=== PATIENT | female | born 1945 | race Caucasian/White ===

== ENCOUNTER → 2016-08-14 | Outpatient (CLI) | payer MEDICARE, OTHER | END | disposition home or self-care (01) | LOC: GMAJ 14:09 | PROVIDERS: ATTEND Family Medicine | DX: E03.9 Hypothyroidism, unspecified (principal) ==

== ENCOUNTER 2017-01-28 15:00 | Inpatient (IN) | payer MEDICARE, OTHER ==
--- NOTE | 2017-01-28 15:02 | HP ---
HISTORY OF PRESENT ILLNESS: This 71 year-old white female is direct admitted to the hospital from Dr. Gutierrez' clinic because of worsening shortness of breath , cough, fever and associated hypoxia with pulse oximetry decreasing from 90% at rest down to 81% walking to the X-ray Department for a film. She was seen in the clinic yesterday by a nurse practitioner and was given a Rocephin shot, and started on Levaquin tablets with her first Levaquin dose being this morning. Her condition has worsened to the point that she came back to the clinic for followup and is referred to the hospital for admission because of worsening condition as well as findings on chest x-ray of a left sided pneumonia. She had a flu swab yesterday which was negative. She has been getting sicker for the last 5 days. Her sputum is generally quite clean. No sore throat, slight runny nose present though. No nausea and vomiting. Pressure in the left ear was noted and her left ear was looked at in the clinic yesterday. The patient is admitted to the hospital for initiation of parenteral antibiotic therapy in an effort to try to slow down the progression and to help prevent her general condition from worsening. PAST MEDICAL HISTORY: 1. Strep infection along with her about a month ago. 2. She has had some coronary artery disease but no significant pneumonia or asthma in the past. PAST SURGICAL HISTORY: 1. Hysterectomy in 1987. 2. Coronary catheterization in 2005 with resultant small caliber left anterior descending being noted. HOME MEDICATIONS: 1. Celexa 40 mg daily. 2. Nasacort AQ 2 sprays in each nostril daily. 3. Levaquin 500 mg starting this morning. 4. Biotin 1 daily. 5. Fish oil daily. ALLERGIES: NONE KNOWN SPECIFICALLY, EXCEPT IT IS NOTED THAT SHE HAS HAD SOME PROBLEMS WITH KJ INHIBITORS RESULTING IN A COUGH, SYNTHROID WITH A SORE THROAT AND ZOCOR GIVING HER A MYALGIA. FAMILY HISTORY: Positive for lung cancer and a transient ischemic attack. SOCIAL HISTORY: She has worked for over 26 years in the [employer] in [place]. She has never smoked or drunk alcoholic beverages. REVIEW OF SYSTEMS: Weight is stable. Low-grade fever, temperature of approximately 100 for the last 5 days with her temperature normally being in the 97s. HEENT: Slight runny nose. No sore throat. Mild ear achiness in the left leg ear. NECK: Supple. LUNGS: Shortness of breath with cough noted with her current illness with associated low oxygen. CARDIOVASCULAR: No significant chest pains. No palpitations. GASTROINTESTINAL: No nausea, vomiting, diarrhea or blood in the stools. GENITOURINARY: No dysuria. Urine culture pending. EXTREMITIES: No significant abnormalities. NEUROLOGIC: She is somewhat weak with her current illness. PHYSICAL EXAMINATION: VITAL SIGNS: See vitals. GENERAL: The patient is awake, alert and oriented, and communicative. CHEST: Lungs have some rales especially in the bases bilaterally but more to the lateral lung field on the left compared to the right and with some clearing of basilar rales with repetitive deep breathing. Encouraged to continue to breathe deeply. CARDIOVASCULAR: Heart tones fairly regular. ABDOMEN: Soft. No organomegaly, marti or tenderness. EXTREMITIES: Fairly well formed. No significant edema and good range of motion. NEUROLOGIC: No focal weakness evident. LABORATORY STUDIES: Flu A and B is negative as of yesterday. Other lab studies was a CBC performed today which shows white count 5,600 with 67% neutrophils, hemoglobin 13.5. ASSESSMENT: 1. History of acute left sided pneumonia with chest x-ray pending in the morning to followup x-rays performed in the clinic and not available at this time for review. 2. Febrile illness for the last 5 days. 3. Moderate hypoxia with pulse oximetry down to 81% ambulating slowly to the X-ray Department in the clinic returning towards normal with low flow oxygen. 4. History of coronary artery disease with history of coronary angiography and a history of small vessel involvement of the left anterior descending artery. PLAN: The patient is admitted to the hospital for initiation of parenteral antibiotic therapy having failed outpatient treatment. The level of hypoxia will require close observation with pulse oximetry but also oxygen supplementation to maintain adequate oxygenation. Pulmonary hygiene and bronchodilators will be used to assist with the respiratory status. Will continue with DVT prophylaxis. Continue with home medications and observe blood pressure, and response to treatment. Close followup in the clinic with Dr. Gutierrez after improvement to the point where she will be able to safely return home. #[id number] [facility]
[2017-01-28] MEDS ORDERED: IBUPROFEN 400 MG TAB PO PRN (15:47)
[2017-01-28] MEDS ORDERED: HYDROcodone 5MG/APAP 325MG 1 EA TAB PO PRN (15:47)
[2017-01-28] MEDS ORDERED: MAGNESIUM HYDROXIDE 30 ML UD PO PRN (15:47)
[2017-01-28] MEDS ORDERED: SODIUM CHLORIDE 0.9% (FLUSH) 10 ML SYG IV PRN (15:47)
[2017-01-28] MEDS ORDERED: IV SET AND CAP CHANGE INJ INJ SCH (16:00)
--- NOTE | 2017-01-28 16:12 | PCM.CORE ---
Physician DVT/VTE - Nurse DVT Assessment & Total Each Risk Factor Represents 2 Points: Age 60-74 Each Risk Factor is 1 Point: Obesity (BMI >25) DVT Assessment Score: 3 - 3-4 High Risk Treatments: Sequential Compression Device Pharmacological: Enoxaparin 40 mg SQ Daily
[2017-01-28] MEDS: LEVALBUTEROL NEBS 1.25 MG/3 ML VIAL INH SCH ×2 (16:33→23:30)
[2017-01-28] MEDS: ENOXAPARIN SODIUM 40 MG/0.4 ML SYG SUBCU SCH (17:23)
[2017-01-28] MEDS: levoFLOXacin 750MG IV 750 MG in PREMIX BAG 1 BAG IVPB SCH (17:23)
[2017-01-28] MEDS: SODIUM CHLORIDE 0.9% 1000ML 1,000 ML IVS PRN (17:23)
[2017-01-28] MEDS ORDERED: TEMAZEPAM 15 MG CAP PO PRN (21:35)
[2017-01-28] MEDS ORDERED: BENZONATATE PERLES 100 MG CAP ONE (22:07)
[2017-01-28] MEDS ORDERED: TEMAZEPAM 15 MG CAP ONE (22:07)
[2017-01-28] MEDS ORDERED: BENZONATATE PERLES 100 MG CAP PO PRN (22:48)
[2017-01-29] MEDS ORDERED: OMEPRAZOLE CAP 20 MG CAP ONE (05:00)
[2017-01-29] MEDS: OMEPRAZOLE CAP 20 MG CAP PO SCH (06:00)
--- NOTE | 2017-01-29 06:57 | RAD ---
Clinical History : Pneumonia , MAIN Exam : PA and lateral views of the chest 01/29/2017 7:00 AM CDT Comparisons : none Findings : There are patchy confluent areas of groundglass opacity throughout the left lower lobe and lingula. The right lung remains largely clear. The heart is normal in size. The mediastinal contours are normal in appearance. The thoracic spine is age appropriate. The shoulders are unremarkable. Limited evaluation of the upper abdomen demonstrates no gross abnormalities. Impression: Lingular and left lower lobe airspace disease, likely representing infectious pneumonia. Electronically signed by: Elaine Monet MD 01/29/2017 6:56 AM CDT
[2017-01-29] MEDS ORDERED: BENZONATATE PERLES 100 MG CAP PO PRN (07:30)
[2017-01-29] MEDS: SODIUM CHLORIDE 0.9% 1000ML 1,000 ML IVS PRN ×2 (08:27→22:02)
[2017-01-29] MEDS: CITALOPRAM HBR 20 MG TAB PO SCH (08:28)
[2017-01-29] MEDS: ASPIRIN EC 81 MG TAB PO SCH (08:28)
[2017-01-29] MEDS: ENOXAPARIN SODIUM 40 MG/0.4 ML SYG SUBCU SCH (08:28)
[2017-01-29] MEDS: LEVALBUTEROL NEBS 1.25 MG/3 ML VIAL INH SCH ×2 (08:38→16:26)
[2017-01-29] MEDS ORDERED: BENZONATATE PERLES 100 MG CAP PO SCH (09:00)
[2017-01-29] MEDS: levoFLOXacin 750MG IV 750 MG in PREMIX BAG 1 BAG IVPB SCH (16:41)
[2017-01-29] MEDS ORDERED: methylPREDNISolone SODIUM SUC 125 MG/2 ML VIAL IV ONE (20:20)
[2017-01-29] MEDS: LEVALBUTEROL NEBS 1.25 MG/3 ML VIAL NEB PRN (20:37)
[2017-01-29] MEDS: guaiFENesin ER TAB 600 MG TAB PO SCH (20:51)
--- NOTE | 2017-01-29 21:05 | PN ---
DATE: 01/29/17 SUPERVISING PHYSICIAN: Clarence Tristan M.D. SUBJECTIVE: The patient is sitting up in her bed. She has complaints of nasal congestion as well as a hacking cough. She also says she has trouble with deep inspiration. Otherwise no complaints of chest pain, nausea, vomiting, diarrhea or constipation. OBJECTIVE: VITAL SIGNS: She is afebrile, heart rate 80, blood pressure 142/79, respiratory rate 18, O2 sat is 94% on 1 liter nasal cannula. RESPIRATORY: Expiratory wheezing throughout with diffuse rhonchi. CARDIAC: Regular rate and rhythm. ABDOMEN: Soft, nondistended, non-tender. Bowel sounds are positive. EXTREMITIES: No cyanosis, clubbing or edema. NEUROLOGIC: She is awake, alert and oriented times three. LABORATORY: WBCs are 3.1 with hemoglobin 12.4, hematocrit 37.2, neutrophils 37.6. Sodium 138, potassium 3.6, chloride 105, carbon dioxide 29, BUN 10, creatinine 0.77, glucose 94. Serum osmolality 274.5 with calcium 8.6. Sputum culture is pending. Preliminary blood cultures show no growth after 24 hours. RADIOLOGY: Chest x-ray per radiology interpretation shows lingular and left lower lobe airspace disease likely representing infectious pneumonia. All other labs and films have been reviewed via the EMR. ASSESSMENT: 1. Left lower lobe pneumonia presently on Levaquin, awaiting sputum cultures. 2. Febrile illness for the past 5 days. She has been afebrile the last 24 hours. 3. Moderate hypoxia with pulse oximetry down to 81% initially and now has stabilized to O2 sats in the low 90s. 4. History of coronary artery disease. PLAN: We will continue present supportive care, including her Levaquin antibiotics. We will await cultures. I have also added steroids and we will give her a tapered dose. I have also ordered some percussion and some EzPAP. Will continue with aggressive pulmonary hygiene. I have ordered Mucinex and we will repeat her labs and chest x-ray in the morning. She will need an ambulation study tomorrow. Otherwise we will continue to monitor her closely and followup as needed. Dr. Tristan is the collaborating physician available for consultation. #[id number] [facility]
[2017-01-30] MEDS: LEVALBUTEROL NEBS 1.25 MG/3 ML VIAL NEB PRN (00:07)
[2017-01-30] MEDS ORDERED: methylPREDNISolone SODIUM SUC 125 MG/2 ML VIAL IV ONE ×2 (06:00→14:39)
[2017-01-30] MEDS: OMEPRAZOLE CAP 20 MG CAP PO SCH (06:21)
--- NOTE | 2017-01-30 07:05 | RAD ---
EXAM DESCRIPTION: Chest,2 Views CLINICAL HISTORY: pna COMPARISON: January 29, 2017 FINDINGS: The cardiomediastinal silhouette is unremarkable. Again seen is interstitial prominence in the mid and lower left lung, unchanged from yesterday's exam. No new airspace consolidation or pleural effusion. The bronchovascular markings are within normal limits, and the lungs are not hyperinflated. There is no pneumothorax or acute fracture. IMPRESSION: Interstitial opacities in the mid and lower left lung, unchanged from yesterday. Findings are consistent with provided history of pneumonia. No new abnormality or other significant change. Electronically signed by: Daniel Finch MD 01/30/2017 7:04 AM CDT
[2017-01-30] MEDS: ASPIRIN EC 81 MG TAB PO SCH (09:00)
[2017-01-30] MEDS: guaiFENesin ER TAB 600 MG TAB PO SCH ×2 (09:00→20:29)
[2017-01-30] MEDS: CITALOPRAM HBR 20 MG TAB PO SCH (09:00)
[2017-01-30] MEDS: LEVALBUTEROL NEBS 1.25 MG/3 ML VIAL INH SCH ×4 (09:29→19:25)
[2017-01-30] MEDS ORDERED: BENZONATATE PERLES 100 MG CAP PO PRN (10:00)
[2017-01-30] MEDS ORDERED: methylPREDNISolone SODIUM SUC 125 MG/2 ML VIAL IM ONE (14:00)
[2017-01-30] MEDS: ENOXAPARIN SODIUM 40 MG/0.4 ML SYG SUBCU SCH (14:28)
[2017-01-30] MEDS: levoFLOXacin 750MG IV 750 MG in PREMIX BAG 1 BAG IVPB SCH (15:18)
--- NOTE | 2017-01-30 17:13 | PN ---
DATE: 01/30/17 SUPERVISING PHYSICIAN: SUBJECTIVE: The patient is sitting up in her chair in her hospital room. She feels much better than yesterday. She still continues to have a productive cough, but the sputum is clear. She denies any shortness of breath, except with exertion. Denies any nausea, vomiting, diarrhea, constipation or chest pain. OBJECTIVE: VITAL SIGNS: She is afebrile, heart rate 80, blood pressure 129/70, respiratory rate 20, O2 sat is 94%. RESPIRATORY: Some mild expiratory wheezing in the bases. Essentially clear in the right upper lobe. A few scattered rhonchi in the left upper lobe. CARDIAC: Regular rate and rhythm. ABDOMEN: Soft, nondistended, non-tender. Bowel sounds are positive. EXTREMITIES: No cyanosis, clubbing or edema. NEUROLOGIC: She is awake, alert and oriented times three. LABORATORY: WBCs are unchanged at 3.1 with neutrophils of 86.2%, hemoglobin 12.5, hematocrit 37.4. Electrolytes are basically within normal limits. Blood glucose has gone as high as 170 but she is on steroid therapy. Preliminary sputum culture shows normal casper at 24 hours. Preliminary blood cultures show no growth after 24 hours. RADIOLOGY: Chest x-ray per radiology interpretation shows interstitial opacities in the mid and lower left lung unchanged from yesterday. Findings are consistent with provided history of pneumonia. No new abnormality or other significant change. All other labs and films have been reviewed via the EMR. ASSESSMENT: 1. Left lower lobe pneumonia presently on Levaquin awaiting sputum cultures. 2. Febrile illness prior to admission. She has been afebrile in the last 48 hours. 3. Moderate hypoxia with a pulse oximetry down to 81% initially and now has stabilized with her O2 sats in the low to mid 90s. 4. History of coronary artery disease. PLAN: We will continue present supportive care. I have tapered down her steroids. She will continue on Levaquin. Clinically she is much improved since yesterday. I will also order an ambulation study tomorrow. I will hold on her labs tomorrow as they are fairly stable, but will repeat her chest x-ray tomorrow. She will need frequent ambulation and continued good pulmonary hygiene. Hopefully we can discharge her tomorrow or Friday as long as she continues to improve. We will continue to monitor closely and followup as needed. Dr. Tristan is the collaborating physician available for consultation. #[id number] [facility]
[2017-01-30] MEDS: methylPREDNISolone SODIUM SUC 40 MG/ML VIAL IV SCH (19:48)
[2017-01-31] MEDS: methylPREDNISolone SODIUM SUC 40 MG/ML VIAL IV SCH ×3 (00:13→12:20)
[2017-01-31] MEDS: OMEPRAZOLE CAP 20 MG CAP PO SCH (06:12)
--- NOTE | 2017-01-31 06:38 | RAD ---
Procedure: XR CHEST 2 VIEWS Exam Date: 01/31/2017 Ordering Provider: HELENA KUMAR Clinical Indication: pna Comparison: 01/30/2017 Findings: Cardiomediastinal silhouette is stable. Focal lung consolidation: None Pleural effusion: None Pneumothorax: None Acute bony or soft tissue abnormality: None Impression: 1. No acute abnormalities in the chest. Electronically signed by: Deven Victor MD 01/31/2017 6:36 AM CDT
[2017-01-31] MEDS: LEVALBUTEROL NEBS 1.25 MG/3 ML VIAL INH SCH ×2 (08:08→13:56)
[2017-01-31] MEDS: CITALOPRAM HBR 20 MG TAB PO SCH (09:21)
[2017-01-31] MEDS: ASPIRIN EC 81 MG TAB PO SCH (09:21)
[2017-01-31] MEDS: guaiFENesin ER TAB 600 MG TAB PO SCH (09:22)
[2017-01-31] MEDS: ENOXAPARIN SODIUM 40 MG/0.4 ML SYG SUBCU SCH (09:23)
[2017-01-31] MEDS ORDERED: FLUCONAZOLE 150 MG TAB PO ONE (12:09)
[2017-01-31 12:11] VITALS: BP 153/66; TEMP 99; O2SAT 98
[2017-01-31] MEDS ORDERED: levoFLOXacin 500 MG TAB PO ONE (12:13)
--- NOTE | 2017-02-07 09:03 | DS ---
SUPERVISING PHYSICIAN: Clarence Tristan MD DISCHARGE DIAGNOSIS: 1. Left lower lobe pneumonia, showing improvement on Levaquin with sputum culture showing normal casper. 2. Febrile illness prior to admission, secondary to #1. 3. Moderate hypoxia with a pulse oximetry of 81% on room air, stabilized oxygen saturations prior to discharge. 4. History of coronary artery disease. HISTORY OF PRESENT ILLNESS: Ms. Chapin is a 71-year-old female patient who was directly admitted to the hospital from Dr. Gutierrez' clinic because of worsening shortness of breath, cough, fever and associated hypoxia with pulse oximetry decreasing from 90% at rest down to 81% walking. She was seen in the clinic the day before admission by a nurse practitioner and was given a Rocephin shot and started on Levaquin tablets with her first Levaquin dose the morning of admission. Her condition has worsened to the point that she came back to the clinic for followup and was referred to the hospital for admission because of worsening condition as well as findings on chest x-ray concerning for left sided pneumonia. She had a flu swab which was negative. She had been getting sicker for the previous 5 days. Her sputum was fairly clean. No sore throat, slight runny nose present though. No nausea and vomiting. The patient is admitted to the hospital for initiation of parenteral antibiotic therapy in an effort to try to slow down the progression and to help prevent her general condition from worsening. LABORATORY: White count on admission and discharge were unchanged at 3,100, hemoglobin 12.5, hematocrit 37.4 at discharge. Platelet count at discharge was 160. Differential did show a mild decrease in her absolute neutrophil count, however this had normalized prior to discharge. Chemistries showed initial , potassium 3.9. At discharge, electrolytes had normalized. BUN was 11, creatinine 0.7, glucose 170. Liver functions all within normal limits. Magnesium was low at 1.8. Urinalysis was within normal limits. MICROBIOLOGY: She had two sets of blood cultures that were negative after five days. Sputum culture showed normal casper at 48 hours. RADIOLOGY: Chest x-ray the morning after admission showed a lingular and left lower lobe airspace disease likely representing infectious pneumonia. Followup x-rays were completed on the morning of discharge on 01/31/17 and final x-ray per radiologic interpretation of a two-view chest showed no acute abnormalities within the chest. HOSPITAL COURSE: Ms. Chapin was admitted as noted above for concerns for developing community acquired pneumonia. She was initiated on aggressive pulmonary hygiene with parenteral antibiotic to include Levaquin. Clinically, she did show good improvement and on the morning of discharge, she was felt clinically stable enough to be discharged to continue with outpatient treatment plan. Vital signs on the morning of discharge showed oxygen saturation 98% on room air, respirations 16, blood pressure 153/60, temperature 99. She did remain afebrile through admission. She did have an ambulation study on that showed she was satting 95% through initial exertion up to 422 feet. She de-satted after ambulation to 91%. The patient did show significant wheezing initially on admission and was started on aggressive corticosteroid treatment with good results and good clinical resolution of her respiratory wheezing along with bronchial hygiene therapy. She also had some questionable vaginal itching from aggressive antibiotic therapy. Therefore, she was given Diflucan for treatment of possible yeast infection. Again, she was clinically stable on the morning of discharge. PLAN: Ms. Chapin was discharged on 01/31/17 with instructions to closely followup in the clinic with Dr. Gutierrez as scheduled on 02/06/17. She was to start her home medications as directed and take prescriptions as instructed. She was to return to the hospital should she have any concerning symptoms. DISCHARGE PRESCRIPTIONS: 1. Albuterol inhaler 1 puff every 4 hours as needed, #1 inhaler. 2. Diflucan 150 mg tablet daily as needed. 3. Levaquin 500 mg daily for 6 days. 4. Prednisone tapering pack, 40 mg for 3 days, 30 mg for 3 days, 20 mg for 3 days, and then one tablet 10 mg for 3 days. DIET AT DISCHARGE: Regular diet as tolerated. ACTIVITIES: Increase as tolerated. CONDITION AT DISCHARGE: Stable and improved. #[id number] [facility]
== END 2017-01-31 13:30 | disposition home or self-care (01) | DRG 195 ==
LOC: MS 15:00
PROVIDERS: ADMIT Emergency Medicine; ATTEND Nurse Practitioner Family
DX: J18.9 Pneumonia, unspecified organism (principal); R09.02 Hypoxemia; I25.10 Atherosclerotic heart disease of native coronary artery without angina pectoris; B37.3 Candidiasis of vulva and vagina

== ENCOUNTER 2017-05-06 04:20 | Emergency (ER) | payer MEDICARE, OTHER ==
[2017-05-06 04:59] VITALS: BP 120/65
[2017-05-06] MEDS ORDERED: ACETAMINOPHEN 500 MG TAB PO ONE (05:29)
--- NOTE | 2017-05-06 05:32 | ED.PDOC ---
History of Present Illness - General Chief Complaint: Fever Stated Complaint: fever, cough, congestion Time Seen by Provider: 05/06/17 05:28 Source: patient Exam Limitations: no limitations Additional Information: C/O ONSET OF FEVER, CLEAR TO BLOOD TINGED RHINORRHEA, GENERAL MALAISE - History of Present Illness Timing/Duration: other - 3 DAYS Fever Therapy GAME ATTENDANT: Ibuprofen Associated Symptoms: headache Review of Systems - Review of Systems Constitutional: States: fever. Denies: chills EENTM: States: nose congestion, throat pain. Denies: ear pain Respiratory: States: cough - [employer] Cardiology: States: no symptoms reported Gastrointestinal/Abdominal: Denies: diarrhea, nausea, vomiting Genitourinary: States: no symptoms reported Musculoskeletal: States: no symptoms reported Skin: States: no symptoms reported Neurological: States: no symptoms reported Endocrine: States: no symptoms reported Past Medical History (General) - Patient Medical History Hx Seizures: No Hx Stroke: No Hx Dementia: No Hx Asthma: No Hx of COPD: No Hx Cardiac Disorders: No Hx Congestive Heart Failure: No Hx Pacemaker: No Hx Hypertension: No Hx Thyroid Disease: No Hx Diabetes: No Hx Gastroesophageal Reflux: No Hx Renal Disease: No Hx Cancer: No Hx of HIV: No Hx Hepatitis C: No Hx MRSA: No Surgical History: Hysterectomy - Vaccination History Hx Tetanus, Diphtheria Vaccination: No - Over 5 yrs ago Hx Influenza Vaccination: No - Social History Hx Tobacco Use: No Hx Alcohol Use: No Hx Substance Use: No Hx Substance Use Treatment: No Hx Depression: No Hx Physical Abuse: No Hx Emotional Abuse: No Family Medical History - Family History Mother Family History: Unknown Physical Exam - Physical Exam General Appearance: Alert, No apparent distress Eye Exam: bilateral normal ENT Exam: normal ENT inspection, TMs normal, pharynx normal, nasal congestion Neck: non-tender, supple, normal inspection Respiratory: lungs clear, normal breath sounds Cardiovascular/Chest: regular rate, rhythm, no murmur Gastrointestinal/Abdominal: non tender, soft, no organomegaly Extremity: normal range of motion, non-tender Neurologic: alert, normal mood/affect Skin Exam: normal color, other - HOT/DRY Lymphatic: no adenopathy Departure - Departure Clinical Impression: Influenza A Time of Disposition: 05:30 Disposition: Discharge to Home or Self Care Condition: Good Departure Forms: ED Discharge - Pt. Copy, Patient Portal Self Enrollment Instructions: Influenza Referrals: Dieudonne Gutierrez MD [Primary Care Provider] - 1-2 Weeks Prescriptions: Oseltamivir Capsule [Tamiflu] 75 mg PO BID 5 Days #10 capsule Home Medications: Ambulatory Orders Celexa 40 mg PO DAILY 11/13/13 Oseltamivir Capsule [Tamiflu] 75 mg PO BID 5 Days #10 capsule 05/06/17
[2017-05-06 05:44] VITALS: TEMP 102; O2SAT 96
== END 2017-05-06 05:45 | disposition home or self-care (01) ==
LOC: ER 04:20
DX: J10.1 Influenza due to other identified influenza virus with other respiratory manifestations (principal)

== ENCOUNTER → 2017-06-27 | Outpatient (CLI) | payer MEDICARE, OTHER | LOC: GMAJ 13:07 | PROVIDERS: ATTEND Family Medicine | DX: E03.9 Hypothyroidism, unspecified (principal) ==

== ENCOUNTER → 2017-08-22 | Outpatient (CLI) | payer MEDICARE, OTHER ==
--- NOTE | 2017-08-23 06:51 | CT ---
EXAM DESCRIPTION: CT ABDOMEN WITH CONTRAST CLINICAL HISTORY: LUQ ABD PAIN R10.12 COMPARISON: None Available. TECHNIQUE: CT of the abdomen is performed during IV bolus administration of 100 mL of Optiray 320 no oral contrast. Pelvis was not included on the study. FINDINGS: The lung bases are clear of infiltrate. Dense breast tissue on the left is noted. Correlate with mammographic and sonographic findings. Liver is normal in size and parenchymal appearance. Spleen, pancreas, and kidneys are unremarkable. Question small 7 mm calcified splenic artery aneurysm in the splenic hilum. This is not significant at this size. There is no lymphadenopathy, inflammation, or free fluid observed. Sagittal reformatted images show degenerative spurring in the upper lumbar spine and lower thoracic spine. No ventral hernia. A cause of left upper quadrant pain is not identified. Tiny cyst in the upper left kidney. Common origin of celiac axis and superior mesenteric artery with calcification is incidentally noted. Coronal reformatted images show normal length of the liver and spleen. Rightward scoliotic curvature of the lower thoracic and upper lumbar spine is seen. IMPRESSION: No acute upper abdominal process. Dense left breast tissue. Correlate with mammographic and sonographic findings. This exam was performed according to our departmental dose-optimization program, which includes automated exposure control, adjustment of the mA and/or kV according to patient size and/or use of iterative reconstruction technique. Total DLP = 58.37 mGycm. Electronically signed by: Eldon Saini MD 08/23/2017 6:50 AM CDT
== END ==
LOC: CT 09:00
PROVIDERS: ATTEND Family Medicine
DX: R10.12 Left upper quadrant pain (principal); R10.84 Generalized abdominal pain; I10 Essential (primary) hypertension

== ENCOUNTER → 2017-09-04 | Outpatient (CLI) | payer MEDICARE, OTHER ==
--- NOTE | 2017-09-05 13:29 | MAM ---
EXAM DESCRIPTION: 3D Screening BILATERAL : Digital Mammography. CLINICAL HISTORY: 72 years Female SCREENING . No complaints. No family history of breast cancer. No childbirth. Postmenopausal. Has taken HRT 5 or more years ago. COMPARISON: 2-D digital screening bilateral study 09/11/2015.. No prior reports available. TECHNIQUE: Bilateral CC and MLO projection full-field images, 3-D tomosynthesis digital mammographic technique. CAD not utilized. FINDINGS: The breast parenchymal density pattern is: Scattered areas of fibroglandular density. No skin thickening or nipple retraction. Right axillary lymph nodes. Bilateral solitary microcalcifications. No focal, stellate mass or density, focal asymmetry , and no suspicious microcalcifications bilaterally. Stable mammograms compared to prior study, taking into account differences in mammographic technique IMPRESSION: BI-RADS CATEGORY: 2 - BENIGN FINDINGS. FOLLOW UP: Routine digital bilateral screening, one year interval from August 2017. Written communication explaining the IMPRESSION and follow-up, will be mailed to the patient and referring health care provider. According to the [employer], yearly mammograms are recommended starting at age 40 and continuing as long as a woman is in good health. Any breast change noted on a breast self-exam should be reported promptly to the patient's healthcare provider. Breast MRI is recommended for women with an approximately 20-25% or greater lifetime risk of breast cancer, including women with a strong family history of breast or ovarian cancer and women who have been treated for Hodgkin's disease. A negative mammographic report should not delay tissue diagnosis in patients with significant clinical history or physical findings. Extremely dense breast tissue limits the sensitivity of digital mammography. Electronically signed by: Mario Madrigal MD 09/05/2017 1:28 PM CDT
== END ==
LOC: MAMMO 08:59
PROVIDERS: ATTEND Family Medicine
DX: Z12.31 Encounter for screening mammogram for malignant neoplasm of breast (principal)

== ENCOUNTER → 2018-09-10 | Outpatient (CLI) | payer MEDICARE, OTHER ==
--- NOTE | 2018-09-10 15:48 | MAM ---
EXAM DESCRIPTION: 3D Screening BILATERAL : Digital Mammography. CLINICAL HISTORY: 73 years Female ANNUAL SCREENING . No complaints. No personal or family history of breast cancer. Childbirth. Postmenopausal more than 30 years. HRT 5 or more years ago.. Lifetime risk of developing breast cancer (Tyrer-Cuzick model)(%): 3.3. COMPARISON: Bilateral screening digital breast tomosynthesis 09/04/2017. TECHNIQUE: Bilateral CC and MLO projection full-field images, digital tomosynthesis mammographic technique. Bilateral digital 2-D full-field MLO images. CAD not available for tomosynthesis or 2-D images. FINDINGS: The breast parenchymal density pattern is: Scattered areas of fibroglandular density. No skin thickening or nipple retraction. Bilateral scattered solitary microcalcifications. Most of the fibroglandular tissues are anterior and middle third. Also ductal type calcifications in the anterior right breast. No new focal, stellate mass or density, focal asymmetry , and no suspicious microcalcifications bilaterally. Stable mammograms compared to prior study. IMPRESSION: Benign exam. BIRAD CATEGORY: 2 BENIGN FINDINGS. RECOMMENDATIONS: FOLLOW UP: Routine digital bilateral mammographic screening, one year interval from September 2018. Written communication explaining the IMPRESSION and follow-up, will be mailed to the patient and referring health care provider. The FINDINGS and the FOLLOW-UP plan were reviewed in person with the patient after the examination. According to the [employer], yearly mammograms are recommended starting at age 40 and continuing as long as a woman is in good health. Any breast change noted on a breast self-exam should be reported promptly to the patient's healthcare provider. Breast MRI is recommended for women with an approximately 20-25% or greater lifetime risk of breast cancer, including women with a strong family history of breast or ovarian cancer and women who have been treated for Hodgkin's disease. A negative mammographic report should not delay tissue diagnosis in patients with significant clinical history or physical findings. Extremely dense breast tissue limits the sensitivity of digital mammography. Electronically signed by: Mario Madrigal MD 09/10/2018 3:46 PM CDT
== END ==
LOC: MAMMO 09:30
PROVIDERS: ATTEND Family Medicine
DX: Z12.31 Encounter for screening mammogram for malignant neoplasm of breast (principal)

== ENCOUNTER → 2018-09-15 | Outpatient (CLI) | payer MEDICARE, OTHER | LOC: GMAJ 10:19 | PROVIDERS: ATTEND Family Medicine | DX: R53.81 Other malaise (principal); R53.83 Other fatigue; D51.3 Other dietary vitamin B12 deficiency anemia; E55.9 Vitamin D deficiency, unspecified; E03.9 Hypothyroidism, unspecified; I10 Essential (primary) hypertension; E78.2 Mixed hyperlipidemia ==

== ENCOUNTER → 2018-09-25 | Outpatient (CLI) | payer MEDICARE, OTHER | DX: R60.0 Localized edema (principal) ==

== ENCOUNTER 2019-02-10 23:00 | Emergency (ER) | payer MEDICARE, OTHER ==
[2019-02-10] MEDS ORDERED: predniSONE 20 MG TAB PO ONE (23:15)
[2019-02-10] MEDS ORDERED: diphenhydrAMINE HCL 50 MG/ML VIAL IM ONE (23:15)
[2019-02-10] MEDS ORDERED: FAMOTIDINE 20 MG TAB PO ONE (23:16)
--- NOTE | 2019-02-10 23:20 | ED.PDOC ---
History of Present Illness - General Chief Complaint: Allergic Reaction Stated Complaint: reports allergic reaction to a med Time Seen by Provider: 02/10/19 23:12 Source: patient, RN notes reviewed, Vital Signs reviewed, family Exam Limitations: no limitations - History of Present Illness Initial Comments: pt states she is scheduled for tooth extraction tomorrow and was told to start Amoxil tonight. She took 1st dose at 2045 tonight, then began itching all over at 2100. Took Benadryl 25 mg x 1 at home [employer] with minimal relief. Reports that her throat feels tight, but denies difficulty breathing or swallowing. Denies rash, CP, SOB, nausea or fever. Allergies/Adverse Reactions: Allergies Amoxicillin Allergy (Verified 02/10/19 23:11) Flu Virus Vaccine Allergy (Verified 02/10/19 23:33) Metoprolol [From Toprol XL] Allergy (Verified 02/10/19 23:12) Pneumococcal Vaccine Allergy (Verified 02/10/19 23:17) shingles vaccine Allergy (Uncoded 02/10/19 23:33) Home Medications: Ambulatory Orders Prednisone 40 mg PO DAILY 4 Days #8 tab 02/10/19 Review of Systems - Review of Systems Constitutional: Denies: chills, fever, weakness EENTM: Denies: blurred vision, nose congestion, throat pain, mouth swelling Respiratory: Denies: cough, short of breath, stridor, wheezing Cardiology: Denies: chest pain, syncope Gastrointestinal/Abdominal: Denies: abdominal pain, diarrhea, nausea, vomiting Musculoskeletal: Denies: back pain Skin: Denies: change in color, rash Past Medical History (General) - Patient Medical History Hx Seizures: No Hx Stroke: No Hx Dementia: No Hx Asthma: No Hx of COPD: No Hx Cardiac Disorders: No Hx Congestive Heart Failure: No Hx Pacemaker: No Hx Hypertension: No Hx Thyroid Disease: No Hx Diabetes: No Hx Gastroesophageal Reflux: No Hx Renal Disease: No Hx Cancer: No Hx of HIV: No Hx Hepatitis C: No Hx MRSA: No - Vaccination History Hx Tetanus, Diphtheria Vaccination: No - Over 5 yrs ago Hx Influenza Vaccination: No - Social History Hx Tobacco Use: No Hx Alcohol Use: No Hx Substance Use: No Hx Substance Use Treatment: No Hx Depression: No Hx Physical Abuse: No Hx Emotional Abuse: No Family Medical History - Family History Mother Family History: Unknown Physical Exam - Physical Exam General Appearance: Alert, Comfortable, Other - Seated on bed, scratching bilateral forearms Ears, Nose, Throat: other - No facial edema. No lip or tongue edema. Oropharynx has no erythema, edema or exudates Neck: non-tender, full range of motion, supple Respiratory: chest non-tender, lungs clear, normal breath sounds, no respiratory distress, no accessory muscle use, other - Good air movement. No stridor or wheezes Cardiovascular/Chest: regular rate, rhythm, no edema, no murmur Gastrointestinal/Abdominal: non tender, soft Back Exam: normal inspection, no vertebral tenderness Extremity: normal range of motion, non-tender Neurologic: no motor/sensory deficits, alert, normal mood/affect Skin Exam: other - No rash or erythema noted. No jaundice Progress - Progress Progress: 02/10/19 23:22 Pt presents with sudden onset of itching after taking first dose Amoxil tonight. No rash. No facial edema, stridor or wheezes. Will treat with Benadryl, steroids, Pepcid and observe in ED 02/10/19 23:54 Itching and sensation of throat tightness have resolved and patient feels at baseline and requesting to go home. On repeat exam, she is seated comfortably, no itching, rash, facial edema, wheezes or stridor. O2 sat 98% on RA with no distress. Tolerating po fluids well. Will continue prednisone and Benadryl. STOP Amoxil. She has an appointment with her dentist tomorrow scheduled for tooth extraction and will discuss antibiotics with him at that time. Departure - Departure Clinical Impression: Pruritic condition Allergic reaction Qualifiers: Encounter type: initial encounter Qualified Code(s): T78.40XA - Allergy, unspecified, initial encounter Time of Disposition: 23:57 Disposition: Discharge to Home or Self Care Condition: Good Departure Forms: ED Discharge - Pt. Copy, Patient Portal Self Enrollment Instructions: Anaphylaxis (DC) Diet: resume usual diet Activity: increase activity as tolerated Referrals: Dieudonne Gutierrez MD [Primary Care Provider] - 1-2 Weeks Prescriptions: Prednisone 40 mg PO DAILY 4 Days #8 tab Home Medications: Ambulatory Orders Prednisone 40 mg PO DAILY 4 Days #8 tab 02/10/19 Additional Instructions: Take Benadryl 25 mg tab every 8 hours prn itching. Follow up with your dentist tomorrow for recheck.
[2019-02-10 23:21] VITALS: O2SAT 98
[2019-02-11 00:25] VITALS: BP 150/60; TEMP 97.7
== END 2019-02-11 00:08 | disposition home or self-care (01) ==
LOC: ER 23:00
DX: L29.9 Pruritus, unspecified (principal); T36.0X5A Adverse effect of penicillins, initial encounter; R09.89 Other specified symptoms and signs involving the circulatory and respiratory systems; Z88.7 Allergy status to serum and vaccine; Z88.8 Allergy status to other drugs, medicaments and biological substances; Z88.1 Allergy status to other antibiotic agents
CPT/HCPCS: J1200; J7512